=== PATIENT | female | born 1970 | race Caucasian/White ===

== ENCOUNTER → 2023-06-19 | Day surgery (SDC) | payer OTHER ==
[~2023-06-19] VITALS: Ht 157.5 cm; Wt 79.1 kg
[~2023-06-19] MED LIST: ALBU18HF12 IH; ALBU18HF7 IH; ALBUTEROL SULFATE 2.5 MG/0.5 ML NEB SOLUTION NEB ONE; BENZOCAINE 20% 50 MCG/SPRAY 57 GM ONE; CARI350T PO; CETI-89 PO; CITA10SO PO; CITA10TA99 PO; CYCL05OE OU; DICL4100G TP; FLUT16SP NASAL; FLUT1DIS5 IH; FentaNYL CITRATE PF 100 MCG/2 ML VIAL ONE; GABA-1181 PO; GABA-1216 PO; ISON300T17 PO; LACT1CAP70 PO; LIDOCAINE 2% 11 ML JELLY ONE; LIDOCAINE 4% 50 ML SOLUTION ONE; MIDAZOLAM HCL 2 MG/2 ML VIAL ONE; MONT-35 PO; MONT5TAB25 PO; MethylPREDNISolone SOD SUCC 125 MG/2 ML VIAL ONE; MethylPREDNISolone SOD SUCC 40 MG/ML VIAL ONE; NORT50CA PO; OMAL150V SQ; OMEP20CA12 PO; OMEP40CA21 PO; OXYC1TAB PO; POLY238P PO; SEMA0.253 SQ; SENN-277 PO; SODIUM CHLORIDE 0.9% 1,000 ML ONE; TRAM-559 PO
[2023-06-19] MEDS: SODIUM CHLORIDE 0.9% 1,000 ML IV ONE (08:27)
[2023-06-19 09:50] VITALS: PULSE 105; RESP 20; O2SAT 100
[2023-06-19] MEDS: MethylPREDNISolone SOD SUCC 40 MG/ML VIAL IVP SCH (10:28)
== END | disposition still patient (30) ==
LOC: SURGERY 06:55
PROVIDERS: ATTEND Internal Medicine Critical Care Medicine
DX: B37.0 Candidal stomatitis (principal); J38.4 Edema of larynx; M81.0 Age-related osteoporosis without current pathological fracture; G43.909 Migraine, unspecified, not intractable, without status migrainosus; Z88.1 Allergy status to other antibiotic agents; Z88.8 Allergy status to other drugs, medicaments and biological substances; Z88.7 Allergy status to serum and vaccine; Z98.890 Other specified postprocedural states; Z90.710 Acquired absence of both cervix and uterus; G47.30 Sleep apnea, unspecified; Z87.01 Personal history of pneumonia (recurrent); Z87.442 Personal history of urinary calculi; Z90.49 Acquired absence of other specified parts of digestive tract
CPT/HCPCS: 31623; 88112; 87206; 87101; 87220; 87070; 88305; 31624; 71045; 87015; J3010; J2250; J2920; J2930; Q9967; J7030; J7613; Z7610